=== PATIENT | female | born 1965 | race Caucasian/White ===

== ENCOUNTER 2021-02-22 08:42 | Outpatient (CLI) | payer OTHER ==
[2021-02-22] MEDS ORDERED: Magnevist 469MG/ML 20 ML VIAL ONE (14:32)
== END 2021-02-22 08:43 | disposition home or self-care (01) ==
LOC: MRI 08:42
PROVIDERS: ATTEND Family Medicine
DX: R41.3 Other amnesia (principal)
CPT/HCPCS: 70553; A9579

== ENCOUNTER 2021-05-21 08:28 | Day surgery (SDC) | payer OTHER ==
[2021-05-18 08:58] VITALS: BMI 31.8
[2021-05-21] MEDS ORDERED: PROPOFOL 200 MG/20 ML VIAL ONE (09:25)
== END 2021-05-21 10:30 | disposition home or self-care (01) ==
LOC: SDC 08:28
PROVIDERS: ATTEND Internal Medicine Gastroenterology
PROC: 0DBK8ZX Excision of Ascending Colon, Via Natural or Artificial Opening Endoscopic, Diagnostic (ICD-10-PCS; principal; 2021-05-21)
PROC: 0DBN8ZZ Excision of Sigmoid Colon, Via Natural or Artificial Opening Endoscopic (ICD-10-PCS; principal; 2021-05-21)
PROC: 0DBM8ZX Excision of Descending Colon, Via Natural or Artificial Opening Endoscopic, Diagnostic (ICD-10-PCS; principal; 2021-05-21)
DX: K52.9 Noninfective gastroenteritis and colitis, unspecified (principal); K50.90 Crohn's disease, unspecified, without complications; K57.30 Diverticulosis of large intestine without perforation or abscess without bleeding; K63.89 Other specified diseases of intestine; M06.9 Rheumatoid arthritis, unspecified; Z86.010 Personal history of colon polyps; Z80.0 Family history of malignant neoplasm of digestive organs; Z79.1 Long term (current) use of non-steroidal anti-inflammatories (NSAID); Z79.899 Other long term (current) drug therapy; Z90.49 Acquired absence of other specified parts of digestive tract
CPT/HCPCS: 88305; J2704

== ENCOUNTER 2022-05-18 13:35 | Emergency (ER) | payer OTHER ==
[2022-05-18] MEDS ORDERED: ISOVUE-370 76%-LOCM 1 ML ONE (13:36)
[2022-05-18 14:40] LABS: #Eosinphils 0.2 thou/uL (0.0-0.7); #Lymphocytes 2.2 thou/uL (1.20-3.40); #Monocytes 0.7 thou/uL (0.11-0.59); %Basophils 0.5 % (0.0-1.0); %Eosinophils 3.1 % (0.0-10.0); %Lymphocytes 30.7 % (21.0-51.0); %Monocytes 9.5 % (0.0-10.0); %Neutrophils 56.2 % (42.0-75.0); Mean Corpuscular HGB CONC 33.3 g/dL (32.0-36.0); Mean Corpuscular Hemoglobin 30.1 pg (27.0-31.0); Mean Corpuscular Volume 90.6 fL (78.0-98.0); Mean Platelet Volume 7.4 fL (7.4-10.4); Platelet Count 271 thou/uL (130-400); RBC Distribution Width 11.5 % (11.5-14.5); Red Blood Cell (RBC) Count 4.97 mill/uL (4.20-5.40); White Blood Cell (WBC) Count 7.2 thou/uL (4.8-10.8)
[2022-05-18 15:10] LABS: ALT (SGPT) 28 U/L (8-55); AST (SGOT) 26 U/L (5-34); Alkaline Phosphatase 110 U/L (40-110); Anion Gap 19 mmol/L (10-20); BUN (Urea Nitrogen) 15 mg/dL (9.8-20.1); Bilirubin, Total 0.4 mg/dL (0.2-1.2); Calc. Creatinine Clearance 0 mL/min (70-130); Calcium 9.9 mg/dL (7.8-10.44); Carbon Dioxide 16 mmol/L (22-29); Chloride 106 mmol/L (98-107); Globulin 3.3 g/dL (2.4-3.5); Glucose 100 mg/dL (70-105); Potassium 4.2 mmol/L (3.5-5.1); Protein, Total 7.3 g/dL (6.0-8.3); Sodium 137 mmol/L (136-145)
[2022-05-18] MEDS ORDERED: Lorazepam 2 MG/ML VIAL ONE (15:55)
[2022-05-18] MEDS ORDERED: Morphine 4 MG/ML VIAL ONE (15:55)
[2022-05-18] MEDS ORDERED: Ketorolac Tromethamine 30 MG/ML VIAL ONE (15:55)
[2022-05-18] MEDS ORDERED: Ondansetron PF 4 MG/2 ML Vial ONE (15:55)
[2022-05-18] MEDS ORDERED: Doxycycline 100 MG CAP PO SCH (16:00)
== END 2022-05-18 18:16 ==
LOC: ERS 13:35 → EEVIPCON 13:35 → ERS 18:16
DX: H92.01 Otalgia, right ear (principal); B95.62 Methicillin resistant Staphylococcus aureus infection as the cause of diseases classified elsewhere; K50.90 Crohn's disease, unspecified, without complications; M06.9 Rheumatoid arthritis, unspecified; Z79.899 Other long term (current) drug therapy
CPT/HCPCS: 36415; 70491; 71045; 80053; 83605; 84484; 85025; 93005; 96361; 96374; 96375; J1885; J2060; J2270; J2405; Q9966

== ENCOUNTER 2024-07-23 07:47 | Outpatient (CLI) | payer OTHER | END 2024-07-23 07:48 | disposition home or self-care (01) | LOC: BICMAMMO 07:47 | PROVIDERS: ATTEND Family Medicine | DX: Z12.31 Encounter for screening mammogram for malignant neoplasm of breast (principal); Z80.3 Family history of malignant neoplasm of breast; Z85.038 Personal history of other malignant neoplasm of large intestine; Z85.42 Personal history of malignant neoplasm of other parts of uterus | CPT/HCPCS: 77067 ==

== ENCOUNTER 2024-12-20 12:27 | Emergency (ER) | payer OTHER | END 2024-12-20 13:10 | disposition home or self-care (01) | LOC: ERS 12:27 | DX: G51.0 Bell's palsy (principal) | CPT/HCPCS: 99284 ==